=== PATIENT | male | born 1960 | race African-American/Black ===

== ENCOUNTER 2018-10-28 23:29 | Emergency (ER) | payer SELFPAY ==
[~2018-10-28] VITALS: Ht 175.3 cm; Wt 100.0 kg
[2018-10-28] MEDS ORDERED: DABI110C PO (23:38)
[2018-10-28 23:42] VITALS: BP 103/63
[2018-10-28] MEDS ORDERED: CeFAZolin 1 GM/DEXTROSE 50 ML IV ONE (23:45)
[2018-10-28] MEDS ORDERED: PERTUSS(ACELL),DIPH,TET VAC/PF 0.5 ML VIAL IM ONE (23:45)
== END 2018-10-29 00:05 | disposition short-term general hospital (02) ==
LOC: EMS 23:30
DX: S81.801A Unspecified open wound, right lower leg, initial encounter (principal); W34.00XA Accidental discharge from unspecified firearms or gun, initial encounter; Y93.89 Activity, other specified; Y92.89 Other specified places as the place of occurrence of the external cause; Y99.8 Other external cause status
CPT/HCPCS: 90471; 90715; 96374; 99285; J0690